=== PATIENT | female | born 1990 | race Caucasian/White ===

== ENCOUNTER 2017-03-08 09:43 | Inpatient (IN) | payer OTHER ==
[2017-03-08] MEDS: DEXTROSE 5%-LACTATED RINGERS 1,000 ML IV SCH (10:00)
[2017-03-08] MEDS ORDERED: AMPICILLIN - 100 ML IVPB ONE (10:30)
[2017-03-08 10:51] LABS: BASOPHIL 0.2 % (0-2.0); EOSINOPHIL 0.2 % (0-4.5); MCH 29.4 pg (25.7-33.7); MCHC 33.6 g/dl (32.0-36.0); MEAN CELL VOLUME 87.7 fl (80-96); MEAN PLT VOLUME 10.1 fl (7.5-11.1); NEUTROPHILS 68.5 % (42.8-82.8); PLATELET COUNT 123 K/MM3 (134-434); RDW 13.6 % (11.6-15.6); WHITE BLOOD COUNT 5.9 K/mm3 (4.0-10.0)
[2017-03-08 11:08] VITALS: BMI 32.5
[2017-03-08 11:08] LABS: INR 0.93 (0.82-1.09); PROTHROMBIN TIME (PATIENT) 10.2 SEC (9.98-11.88)
[2017-03-08 11:11] LABS: ACTIVATED PTT 30.7 SECONDS (26.9-34.4)
[2017-03-08 11:12] LABS: ANION GAP 11 (8-16); CALCIUM 8.3 mg/dL (8.5-10.1); CO2 20 mmol/L (21-32); CREATININE 0.7 mg/dL (0.55-1.02); GLUCOSE,RANDOM 73 mg/dL (74-106)
[2017-03-08] MEDS: OXYTOCIN 20 UNITS in 0.9% NS 1,000 ML IV SCH ×2 (12:00→16:54)
--- NOTE | 2017-03-08 12:18 | HP ---
Past Medical History - Admission Chief Complaint: Labor pain History of Present Illness: 26 yo @ 37 weeks gestation admitted for active labor. She denies any vaginal bleeding nor ROM. History Source: Patient - Past Medical History ...: 3 ...Para: 2 ...Term: 2 ...: 0 ...Spon : 0 ...Induced : 0 ...Multiple Gestation: 0 ...LMP: 06/18/16 ... Weeks Gestation by Dates: 37.4 ...EDC by Dates: 03/25/17 ...EDC by Sono: 03/25/17 - Past Surgical History Past Surgical History: Yes: None Hx Myomectomy: No Hx Transabdominal Cerclage: No - Smoking History Smoking history: Never smoked Have you smoked in the past 12 months: No - Alcohol/Substance Use Hx Alcohol Use: No History of Substance Use: reports: None - Social History Usual Living Arrangement: Yes: With Spouse History of Recent Travel: No Home Medications - Allergies Allergies/Adverse Reactions: Allergies Allergy/AdvReac Type Severity Reaction Status Date / Time No Known Allergies Allergy Verified 03/08/17 10:57 - Home Medications Home Medications: Ambulatory Orders Pnv95/Ferrous Fumarate/FA [ Vitamin Tablet] 1 each PO DAILY 03/08/17 Family Disease History - Family Disease History Family History: Unremarkable Review of Systems - Review of Systems Constitutional: reports: No Symptoms Eyes: reports: No Symptoms HENT: reports: No Symptoms Neck: reports: No Symptoms Cardiovascular: reports: No Symptoms Respiratory: reports: No Symptoms Gastrointestinal: reports: No Symptoms Genitourinary: reports: No Symptoms Breasts: reports: No Symptoms Reported Musculoskeletal: reports: No Symptoms Integumentary: reports: No Symptoms Neurological: reports: No Symptoms Endocrine: reports: No Symptoms Psychiatric: reports: No Symptoms Pain Intensity: 9 Physical Exam - Maternity Vital Signs: Vital Signs Temperature 98.4 F 03/08/17 10:06 Pulse Rate 72 03/08/17 11:00 Respiratory Rate 20 03/08/17 11:00 Blood Pressure 143/91 03/08/17 11:00 O2 Sat by Pulse Oximetry (%) Constitutional: Yes: Well Nourished Eyes: Yes: WNL HENT: Yes: WNL Neck: Yes: WNL Cardiovascular: Yes: Regular Rate and Rhythm Lungs: Clear to auscultation - Abdominal Exam/OB Number of Fetuses: Single Presentation: Vertex Contractions: Yes - Vaginal Exam/OB Dilatation (cm): 6 Amniotic Membrane Status: Intact Station: -2 - Physical Exam ...Motor Strength: WNL Psychiatric: Yes: Alert, Oriented - Labs Lab Results: CBC, BMP 03/08/17 10:33 03/08/17 10:33 Problem List - Problems (1) Pain during labor Code(s): O99.89 - OTH DISEASES AND CONDITIONS COMPL PREG/CHLDBRTH R52 - PAIN, UNSPECIFIED (2) Status post normal vaginal delivery Code(s): JDT1742 - Assessment/Plan Active labor Admit to L&D Anticipate
[2017-03-08] MEDS ORDERED: METHYLERGONOVINE MALEATE 0.2 MG/1 ML AMP IM PRN (12:19)
[2017-03-08] MEDS ORDERED: BENZOCAINE 20% 57 GM BOTTLE TP PRN (12:19)
[2017-03-08] MEDS ORDERED: BENZOCAINE 28 GM HEMORRHOIDAL OINTMENT TP PRN (12:19)
[2017-03-08] MEDS ORDERED: WITCH HAZEL 50% (TUCKS) 40 PAD/JAR PAD TP PRN (12:19)
[2017-03-08] MEDS ORDERED: BISACODYL 10 MG SUPP.RECT RC PRN (12:19)
--- NOTE | 2017-03-08 12:19 | PN ---
Delivery - Delivery Vaginal Delivery: Spontaneous Episiotomy/Laceration: None EBL (cc): 250 Delivery, Single - Feeding Plan Initial Plan: Elected not to breastfeed exclusively throughout hospitalization Remarks - Remarks Remarks: Normal spontaneous vaginal delivery of a live infant over intact perineum. Nose / Oropharynx suctioned @ perineum. Cord clamped and cut. Placenta expelled spontaneously intact.
[2017-03-08] MEDS: IBUPROFEN 600 MG TABLET (FP) PO PRN (12:20)
[2017-03-08] MEDS: ACETAMINOPHEN 325 MG TABLET (FP) PO PRN (12:20)
[2017-03-08] MEDS ORDERED: AMPICILLIN - 100 ML IVPB SCH (14:30)
[2017-03-08] MEDS: FERROUS SO4 325 MG TABLET (FP) PO SCH (16:54)
[2017-03-09 08:09] LABS: BASOPHIL 0.3 % (0-2.0); EOSINOPHIL 0.3 % (0-4.5); MCHC 33.9 g/dl (32.0-36.0); MEAN CELL VOLUME 88.5 fl (80-96); MEAN PLT VOLUME 10.4 fl (7.5-11.1); NEUTROPHILS 70.7 % (42.8-82.8); PLATELET COUNT 118 K/MM3 (134-434); RDW 13.6 % (11.6-15.6); WHITE BLOOD COUNT 8.5 K/mm3 (4.0-10.0)
[2017-03-09] MEDS: FERROUS SO4 325 MG TABLET (FP) PO SCH ×3 (08:47→17:44)
[2017-03-09] MEDS: ACETAMINOPHEN 325 MG TABLET (FP) PO PRN (08:47)
[2017-03-09] MEDS: IBUPROFEN 600 MG TABLET (FP) PO PRN (08:47)
--- NOTE | 2017-03-09 09:56 | PN ---
Post Progress Note - Subjective Subjective: 26 yo Para 3 status post vaginal delivery, seen and evaluated. Doing well. Post Day: 1 Type of Delivery: Vital Signs: Vital Signs Temperature 97.8 F 03/09/17 06:00 Pulse Rate 71 03/09/17 06:00 Respiratory Rate 18 03/09/17 06:00 Blood Pressure 122/81 03/09/17 06:00 O2 Sat by Pulse Oximetry (%) Breast Exam: Yes: Soft Uterus: Yes: Fundus Firm Abdomen/GI: Yes: Abdomen soft, Tolerating PO Lochia: Yes: Rubra Lochia, amount: Moderate Extremities: Yes: Calves non-tender Perineum: Yes: Intact Activity: Ambulating - Labs Labs: CBC WBC 8.5 K/mm3 (4.0-10.0) D 03/09/17 07:35 RBC 2.88 M/mm3 (3.60-5.2) L D 03/09/17 07:35 Hgb 8.6 GM/dL (10.7-15.3) L D 03/09/17 07:35 Hct 25.5 % (32.4-45.2) L D 03/09/17 07:35 MCV 88.5 fl (80-96) 03/09/17 07:35 MCH 30.0 pg (25.7-33.7) 03/09/17 07:35 MCHC 33.9 g/dl (32.0-36.0) 03/09/17 07:35 RDW 13.6 % (11.6-15.6) 03/09/17 07:35 Plt Count 118 K/MM3 (134-434) L 03/09/17 07:35 MPV 10.4 fl (7.5-11.1) 03/09/17 07:35 Neutrophils % 70.7 % (42.8-82.8) 03/09/17 07:35 Lymphocytes % 21.2 % (8-40) 03/09/17 07:35 Monocytes % 7.5 % (3.8-10.2) 03/09/17 07:35 Eosinophils % 0.3 % (0-4.5) 03/09/17 07:35 Basophils % 0.3 % (0-2.0) 03/09/17 07:35 Problem List - Problems (1) Pain during labor Code(s): O99.89 - OTH DISEASES AND CONDITIONS COMPL PREG/CHLDBRTH R52 - PAIN, UNSPECIFIED (2) Status post normal vaginal delivery Code(s): CYY0723 - Assessment/Plan Status post vaginal delivery Stable Continue routine care
[2017-03-09] MEDS ORDERED: FLU VACC QS2017-18 36MOS UP/PF 60 MCG/0.5 ML SYRINGE IM ONE (10:00)
[2017-03-09] MEDS: PRENATAL VITAMINS W/ FOLIC ACID TABLET (FP) PO SCH (10:00)
[2017-03-09] MEDS ORDERED: DIPHTH,PERTUSS(ACELL),TET 0.5 ML DISP.SYRIN IM ONE (10:00)
[2017-03-09] MEDS: OXYTOCIN 20 UNITS in 0.9% NS 1,000 ML IV SCH (17:46)
[2017-03-09] MEDS: DEXTROSE 5%-LACTATED RINGERS 1,000 ML IV SCH (17:47)
[2017-03-09] MEDS ORDERED: SENNOSIDES/DOCUSATE COMBO (SENNA PLUS) TABLET (UD) PO PRN (22:00)
--- NOTE | 2017-03-10 07:12 | PN ---
Post Progress Note Post Day: 2 Type of Delivery: Vital Signs: Vital Signs Temperature 98.5 F 03/09/17 22:00 Pulse Rate 78 03/09/17 22:00 Respiratory Rate 20 03/09/17 22:00 Blood Pressure 121/77 03/09/17 22:00 O2 Sat by Pulse Oximetry (%) Breast Exam: Yes: Soft Uterus: Yes: Fundus Firm Abdomen/GI: Yes: Abdomen soft Lochia: Yes: Rubra Lochia, amount: Small Extremities: Yes: Calves non-tender Perineum: Yes: Intact Activity: Ambulating - Labs Labs: CBC WBC 8.5 K/mm3 (4.0-10.0) D 03/09/17 07:35 RBC 2.88 M/mm3 (3.60-5.2) L D 03/09/17 07:35 Hgb 8.6 GM/dL (10.7-15.3) L D 03/09/17 07:35 Hct 25.5 % (32.4-45.2) L D 03/09/17 07:35 MCV 88.5 fl (80-96) 03/09/17 07:35 MCH 30.0 pg (25.7-33.7) 03/09/17 07:35 MCHC 33.9 g/dl (32.0-36.0) 03/09/17 07:35 RDW 13.6 % (11.6-15.6) 03/09/17 07:35 Plt Count 118 K/MM3 (134-434) L 03/09/17 07:35 MPV 10.4 fl (7.5-11.1) 03/09/17 07:35 Neutrophils % 70.7 % (42.8-82.8) 03/09/17 07:35 Lymphocytes % 21.2 % (8-40) 03/09/17 07:35 Monocytes % 7.5 % (3.8-10.2) 03/09/17 07:35 Eosinophils % 0.3 % (0-4.5) 03/09/17 07:35 Basophils % 0.3 % (0-2.0) 03/09/17 07:35 Assessment/Plan as above oob dc home today
[2017-03-10] MEDS: FERROUS SO4 325 MG TABLET (FP) PO SCH ×2 (08:40→12:00)
[2017-03-10] MEDS: PRENATAL VITAMINS W/ FOLIC ACID TABLET (FP) PO SCH (10:00)
[2017-03-10] MEDS: DEXTROSE 5%-LACTATED RINGERS 1,000 ML IV SCH (11:32)
[2017-03-10 12:54] VITALS: BP 136/81; PULSE 88; TEMP 97.9
== END 2017-03-10 15:10 | disposition home or self-care (01) | DRG 560 ==
LOC: JDEL 09:43 → JLDR 10:06 → J3W 13:27
PROVIDERS: ADMIT Obstetrics & Gynecology; ATTEND Obstetrics & Gynecology
PROC: 10E0XZZ Delivery of Products of Conception, External Approach (ICD-10-PCS; principal; 2017-03-08)
DX: O80 Encounter for full-term uncomplicated delivery (principal); Z3A.37 37 weeks gestation of pregnancy; Z37.0 Single live birth
CPT/HCPCS: 36415; 59409; 80048; 85025; 85610; 85730; 86593; 86850; 86900; 86901; 90686; 90715; G0008